=== PATIENT | female | born 1990 ===

== ENCOUNTER 2022-06-02 08:47 | Outpatient (CLI) | payer OTHER | END 2022-06-02 09:55 | disposition home or self-care (01) | LOC: PRENATAL 08:47 | PROVIDERS: ATTEND Obstetrics & Gynecology Maternal & Fetal Medicine | DX: Z76.1 Encounter for health supervision and care of foundling (principal) ==

== ENCOUNTER 2022-08-04 11:10 | Outpatient (CLI) | payer OTHER | END 2022-08-04 12:41 | disposition home or self-care (01) | LOC: PRENATAL 11:10 | PROVIDERS: ATTEND Obstetrics & Gynecology Maternal & Fetal Medicine | DX: O35.3XX0 Maternal care for (suspected) damage to fetus from viral disease in mother, not applicable or unspecified (principal); O35.9XX0 Maternal care for (suspected) fetal abnormality and damage, unspecified, not applicable or unspecified; Z3A.24 24 weeks gestation of pregnancy ==

== ENCOUNTER 2022-10-12 14:01 | Outpatient (CLI) | payer OTHER | END 2022-10-12 15:01 | disposition home or self-care (01) | LOC: PRENATAL 14:01 | PROVIDERS: ATTEND Obstetrics & Gynecology Maternal & Fetal Medicine | DX: O26.849 Uterine size-date discrepancy, unspecified trimester (principal); O35.9XX0 Maternal care for (suspected) fetal abnormality and damage, unspecified, not applicable or unspecified; Z3A.34 34 weeks gestation of pregnancy ==